=== PATIENT | female | born 1965 | race Caucasian/White ===

== ENCOUNTER 2023-05-18 20:10 | Emergency (ER) | payer BC ==
[2023-05-18 21:16] LABS: HCT 36.3 % (34.0-46.0); HGB 12.4 gm/dL (11.4-16.0); MCH 31.1 pg (25.0-35.0); MCV 91.5 fL (80.0-100.0); Mean Platelet Volume 8.2; Platelet Count 337 k/uL (150-450); RBC 3.97 m/uL (3.80-5.40); RDW 12.7 % (11.5-15.5); WBC 8.7 k/uL (3.8-10.6)
--- NOTE | 2023-05-18 21:38 | ED ---
General Adult HPI - General Chief complaint: Extremity Problem,Nontraumatic Stated complaint: Swelling under arm-post surgery Time Seen by Provider: 05/18/23 20:19 Source: patient, RN notes reviewed, old records reviewed Mode of arrival: ambulatory Limitations: no limitations - History of Present Illness Initial comments: Patient is a 58-year-old female presents emergency Department complaining of surgical site edema and swelling. Patient had a lymph node biopsy done approximately one week ago. The last 3 days or so there has been increased swelling at the site. More noticeable over the last 1-2 days. No significant erythema around the area. Mild burning pain at the site as well. No fevers or chills. No nausea or vomiting. No shortness breath or cough. No evidence of systemic infection. Presents for further evaluation at this time over concern for possible localized. Infection. Is unable to contact her surgeon. - Related Data Previous Rx's Medication Instructions Recorded Sulfamethox-Tmp 800-160Mg [Bactrim 1 tab PO Q12HR 4 Days #8 tab 05/18/23 DS 800-160 mg] Allergies Allergy/AdvReac Type Severity Reaction Status Date / Time codeine Allergy Unknown Verified 05/18/23 20:17 Penicillins Allergy Rash/Hives Verified 05/18/23 20:17 Review of Systems ROS Statement: Those systems with pertinent positive or pertinent negative responses have been documented in the HPI. Review of Systems: CONST: Denies fever EYES: Denies blurry vision ENT: Denies nasal congestion C/V: Denies Chest pain RESP: Denies shortness of breath GI: Denies abdominal pain : Denies dysuria SKIN: Endorses edema under right arm. Swelling at the surgical site. Minimal erythema at the site as well. No discharge. MSK: Denies joint pain. NEURO: Denies headache ROS Other: All systems not noted in ROS Statement are negative. Past Medical History Past Medical History: Cancer, Thyroid Disorder Additional Past Medical History / Comment(s): Breast cancer History of Any Multi-Drug Resistant Organisms: None Reported Past Surgical History: No Surgical Hx Reported Past Psychological History: No Psychological Hx Reported Smoking Status: Never smoker Past Alcohol Use History: None Reported Past Drug Use History: None Reported General Exam - General Exam Comments Initial Comments: General: Appears in no acute distress. Afebrile. HEAD: Normal with no signs of head trauma. EYES: EOMI ENT: Hearing grossly intact, normal oropharynx. RESPIRATORY: Clear breath sounds bilaterally. No respiratory distress. C/V: Regular rate and rhythm. ABD: Abd is soft, nontender, nondistended EXT: Patient has an approximately 2 inch incision located in the right axillary space from a lymph node biopsy. Under the incision there is a small amount of edema versus fluctuance. Animal erythema around the incision site. No obvious drainage. No extension of the erythema or edema. Seems to be localized at the site. SKIN: No rashes or lesions observed on exposed skin. NEURO: Alert and oriented x 4. Limitations: no limitations Course Vital Signs 05/18/23 05/18/23 20:11 22:57 Temperature 97.4 F L 97.5 F L Pulse Rate 74 71 Respiratory 18 17 Rate Blood Pressure 128/60 126/58 O2 Sat by Pulse 100 97 Oximetry Medical Decision Making - Medical Decision Making Was pt. sent in by a medical professional or institution (, PA, [employer], urgent care, hospital, or snf...) When possible be specific @ -No Did you speak to anyone other than the patient for history (EMS, parent, family, police, friend...)? What history was obtained from this source @ -No Did you review nursing and triage notes (agree or disagree)? Why? @ -I reviewed and agree with nursing and triage notes Were old charts reviewed (outside hosp., previous admission, EMS record, old EKG, old radiological studies, urgent care reports/EKG's, snf records)? Report findings @ -No old charts were reviewed Differential Diagnosis (chest pain, altered mental status, abdominal pain women, abdominal pain men, vaginal bleeding, weakness, fever, dyspnea, syncope, headache, dizziness, GI bleed, back pain, seizure, CVA, palpatations, mental health, musculoskeletal)? @ - Post op Infection, localized edema, cellulitis, abscess. This list is not all-inclusive. EKG interpreted by me (3pts min.). @ -None done X-rays interpreted by me (1pt min.). @ -None done CT interpreted by me (1pt min.). @ -None done U/S interpreted by me (1pt. min.). @ -Ultrasound of the right axilla remarkable for a 6 cm postop seroma. What testing was considered but not performed or refused? (CT, X-rays, U/S, labs)? Why? @ -None What meds were considered but not given or refused? Why? @ -None Did you discuss the management of the patient with other professionals (professionals i.e. , PA, [employer], lab, RT, psych nurse, director social service, medical lab technologist, teacher, network security officer, case mgr)? Give summary @ -No Was smoking cessation discussed for >3mins.? @ -No Was critical care preformed (if so, how long)? @ -No Were there social determinants of health that impacted care today? How? (Homelessness, low income, unemployed, alcoholism, drug addiction, transportation, low edu. Level, literacy, decrease access to med. care, fci, rehab)? @ -No Was there de-escalation of care discussed even if they declined (Discuss DNR or withdrawal of care, Hospice)? DNR status @ -No What co-morbidities impacted this encounter? (DM, HTN, Smoking, COPD, CAD, Cancer, CVA, ARF, Chemo, Hep., AIDS, mental health diagnosis, sleep apnea, morbid obesity)? @ -None Was patient admitted / discharged? Hospital course, mention meds given and route, prescriptions, significant lab abnormalities, going to OR and other pertinent info. @ -Based on the patient's presentation and physical exam, I did recommend basic labs and ultrasound to evaluate for localized infection. Could just be localized edema following lymph node biopsy. She was in agreement this plan. Exam relatively unremarkable. No systemic signs of infection at this time. Patient has a postop seroma on ultrasound. Labs are within acceptable limits. I did the patient results of her workup. She will be discharged home at this time. We will empirically place the patient on Bactrim. She was in agreement this plan. She will follow up with her physicians and surgeon. I will provide the patient with a prescription for Bactrim. I instructed the patient to follow up with their PCP in the next 1-3 days. I explained that the patient should return to the emergency department if they experience any worsening symptoms. Strict return precautions were discussed with the patient. The patient expressed understanding of these instructions. I answered all questions that the patient had. The patient was discharged home in good condition with their prescriptions and follow up information. Undiagnosed new problem with uncertain prognosis? @ -No Drug Therapy requiring intensive monitoring for toxicity (Heparin, Nitro, Insulin, Cardizem)? @ -No Were any procedures done? @ -No Diagnosis/symptom? @ -Postop seroma Acute, or Chronic, or Acute on Chronic? @ -Acute Uncomplicated (without systemic symptoms) or Complicated (systemic symptoms)? @ -Uncomplicated Side effects of treatment? @ -none Exacerbation, Progression, or Severe Exacerbation] @ -no Poses a threat to life or bodily function? @ -no - Lab Data Result diagrams: 05/18/23 21:04 05/18/23 21:04 Lab Results 05/18/23 05/18/23 Range/Units 21: 21:04 WBC 8.7 (3.8-10.6) k/uL RBC 3.97 (3.80-5.40) m/uL Hgb 12.4 (11.4-16.0) gm/dL Hct 36.3 (34.0-46.0) % MCV 91.5 (80.0-100.0) fL MCH 31.1 (25.0-35.0) pg MCHC 34.0 (31.0-37.0) g/dL RDW 12.7 (11.5-15.5) % Plt Count 337 (150-450) k/uL MPV 8.2 Sodium 134 L (137-145) mmol/L Potassium 4.0 (3.5-5.1) mmol/L Chloride 104 (98-107) mmol/L Carbon Dioxide 19 L (22-30) mmol/L Anion Gap 11 mmol/L BUN 18 H (7-17) mg/dL Creatinine 0.77 (0.52-1.04) mg/dL Est GFR (CKD-EPI)AfAm >90 (>60 ml/min/1.73 sqM) Est GFR (CKD-EPI)NonAf 85 (>60 ml/min/1.73 sqM) Glucose 80 (74-99) mg/dL Calcium 9.1 (8.4-10.2) mg/dL Disposition Clinical Impression: Seroma Disposition: HOME SELF-CARE Condition: Good Instructions (If sedation given, give patient instructions): Seroma (DC) Additional Instructions: Patient has a 6.0 cm postoperative seroma at the incision site. Prescriptions: Sulfamethox-Tmp 800-160Mg [Bactrim DS 800-160 mg] 1 tab PO Q12HR 4 Days #8 tab Is patient prescribed a controlled substance at d/c from ED?: No Referrals: Henry Sellers MD [Primary Care Provider] - 1-2 days Time of Disposition: 22:19
--- NOTE | 2023-05-18 22:00 | US ---
EXAMINATION TYPE: US axilla RT DATE OF EXAM: 05/18/2023 COMPARISON: NONE CLINICAL INDICATION: Female, 58 years old with history of eval for abscess/ edema at biopsy site; pat ient had lumpectomy and lymph node Bx 1 week ago. Patient reports area in breast is fine but surgical site at the right axilla has become swollen and painful TECHNIQUE: several images taken right axilla at area of concern FINDINGS: C [employer] Developer notes: patients palpable area at the right axilla corresponds to a 4.8x4.6x6.0 cm anechoic fluid collection beneath the incision site IMPRESSION: A 6.0 cm postoperative seroma suspected at the axillary excision site. Clinical correlation will be n eeded to exclude infective fluid.
[2023-05-18 22:11] LABS: African American GFR (CKD) >90 (>60 ml/min/1.73 sqM); Anion Gap 11 mmol/L; Blood Urea Nitrogen 18 mg/dL (7-17); Calcium 9.1 mg/dL (8.4-10.2); Carbon Dioxide 19 mmol/L (22-30); Chloride 104 mmol/L (98-107); Glucose 80 mg/dL (74-99); Non-African American GFR(CKD) 85 (>60 ml/min/1.73 sqM); Sodium 134 mmol/L (137-145)
[2023-05-18] MEDS ORDERED: SULFAMETH-TMP DS STARTER PACK 2 TAB BTL PO STA (22:25)
[2023-05-18] MEDS ORDERED: SULFAMETHOX-TMP 800-160MG 1 EACH TAB PO STA (22:26)
[2023-05-18 23:12] VITALS: BP 126/58; PULSE 71; RESP 17; TEMP 97.5
== END 2023-05-18 22:57 | disposition home or self-care (01) ==
LOC: EC 20:10
DX: L76.34 Postprocedural seroma of skin and subcutaneous tissue following other procedure (principal); Z88.5 Allergy status to narcotic agent; Z88.0 Allergy status to penicillin
CPT/HCPCS: 36415; 80048; 85027; 99284

== ENCOUNTER → 2024-02-11 | Outpatient (CLI) | payer BC ==
--- NOTE | 2024-02-13 07:51 | MM ---
Reason for Exam: Follow-up at short interval from prior study. Last mammogram was performed 2 year(s) and 6 month(s) ago. Patient History: Menarche at age 14. Patient has no children. Postmenopausal. Breast cancer, right, age 58. Previous chest radiation therapy at age 58. MG stereo VAD BX LT - 2 on the Left side. MG pre op needle loc RT on the Right side. US biopsy breast VAD RT on the Right side. Prior Study Comparison: Bilateral Diagnostic Mammogram, Unknown. 08/17/2021 Bilateral Diagnostic Mammogram, Unknown. Tissue Density: The breasts are heterogeneously dense, which may obscure small masses. Findings: Postbiopsy changes are within the right breast. Scar marker overlies the right breast. There is a core marker within the left breast. No significant interval changes are evident. No suspicious groups of microcalcifications, spiculated or lobular masses, architectural distortion or other secondary signs of malignancy are mammographically apparent. Overall Assessment: Benign, BI-RAD 2 Management: Diagnostic Mammogram of both breasts in 1 year. A negative mammogram report should not preclude additional follow up of suspicious palpable abnormalities. Patient should continue monthly self breast exam. A clinical breast exam by your physician is recommended on an annual basis and results should be correlated with mammographic findings. Note on Chela scores and lifetime risk: 1. A Chela score greater than 3% is considered moderate risk. If this is the case, consider specialist referral to assess eligibility for a risk reducing agent. 2. If overall lifetime risk for the development of breast cancer is 20% or higher, the patient may qualify for future screening with alternating mammogram and breast MRI. Electronically signed and approved by: John Galvez D.O. Radiologis
== END | disposition home or self-care (01) ==
LOC: RADMAMWWP 09:14
PROVIDERS: ATTEND Radiology Radiation Oncology
CPT/HCPCS: 77062; 77066

== ENCOUNTER → 2024-02-11 | Outpatient (CLI) | payer BC ==
--- NOTE | 2024-02-11 12:50 | US ---
EXAMINATION TYPE: US thyroid st tissue head/neck DATE OF EXAM: 02/11/2024 COMPARISON: NONE CLINICAL INDICATION: Female, 58 years old with history of E041 THYROID NODULE; On medications GLAND SIZE: Right Lobe: 4.3 x 1.3 x 1.5 cm Overall Parenchyma: heterogeneous Left Lobe: 4.4 x 1.4 x 1.3 cm Overall Parenchyma: heterogeneous Isthmus Thickness: 0.1 cm NODULES RIGHT: # of nodules measured on right: 0 LEFT: # of nodules measured on left: 0 ISTHMUS: # of nodules measured in the isthmus: 0 Bilateral neck scanned, no evidence of lymphadenopathy. IMPRESSION: Heterogenous thyroid gland correlate with prior thyroiditis. [facility], , 02/11/2024 12:48 PM
== END | disposition home or self-care (01) ==
LOC: RADUSWWP 09:17
PROVIDERS: ATTEND Internal Medicine
CPT/HCPCS: 76536; 84443